=== PATIENT | male | born 1960 | race Caucasian/White ===

== ENCOUNTER 2016-12-14 20:45 | Emergency (ER) | payer MEDICARE, MEDICAID ==
[2016-12-14] MEDS ORDERED: 50% Dextrose in Water 50 ML Syringe IVPUSH ONE (21:00)
[2016-12-14] MEDS ORDERED: Labetalol 100 MG Tab PO ONE (21:13)
[2016-12-14 21:30] VITALS: BP 221/102
[2016-12-14 21:39] LABS: CHLORIDE,CL 100 mmol/L (101-111); SODIUM,NA 136 mmol/L (135-145)
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
== END 2016-12-14 22:40 | disposition home or self-care (01) ==
LOC: DL.ED 20:45
DX: E11.649 Type 2 diabetes mellitus with hypoglycemia without coma (principal); I10 Essential (primary) hypertension; Z79.899 Other long term (current) drug therapy; Z79.4 Long term (current) use of insulin
CPT/HCPCS: 36415; 80053; 82962; 84484; 85025; 85610; 99285; A9270; 96374; 99283; J7060

== ENCOUNTER 2017-08-13 21:05 | Emergency (ER) | payer MEDICARE, MEDICAID ==
--- NOTE | 2017-08-13 21:19 | EDM.PDOC ---
ED HPI GENERAL MEDICAL PROBLEM - General Stated Complaint: IN BY AMBULANCE Time Seen by Provider: 08/13/17 21:13 Source of Information: Reports: EMS History Limitations: Reports: Altered Mental Status - History of Present Illness INITIAL COMMENTS - FREE TEXT/NARRATIVE: EMS state his mother got concerned since he didn't answer her call, thought is DM reaction. BS 172 @ scene, pt not responding verbally only to sternal rub. on arrival pt pulled away when tried to exam pupils, no verbal response but fighting IV insertion. somewhat combative. no respiratory distress. last time some talked to him was yesterday. - Related Data Allergies Allergy/AdvReac Type Severity Reaction Status Date / Time No Known Allergies Allergy Verified 12/14/16 21:14 Home Meds: Home Meds Insulin Detemir [Levemir Flexpen] 16 pen SQ QAM 03/14/14 [History] Insulin Aspart [Novolog Flexpen] 6 units SQ TID 05/25/14 [History] Insulin Detemir [Levemir Flextouch] 8 units SQ QPM 12/14/16 [History] Labetalol HCl [Labetalol] 300 mg PO DAILY 12/14/16 [History] Levothyroxine 75 mcg PO ACBREAKFAST 12/14/16 [History] Social & Family History - Tobacco Use Smoking Status *Q: Never Smoker Second Hand Smoke Exposure: No - Alcohol Use Days Per Week of Alcohol Use: 1 Number of Drinks Per Day: 2 Total Drinks Per Week: 2 - Recreational Drug Use Recreational Drug Use: No ED ROS GENERAL - Review of Systems Review Of Systems: ROS reveals no pertinent complaints other than HPI. - Physical Exam Exam: See Below Exam Limited By: Altered Mental Status General Appearance: Other (dishevelled appearance) Eye Exam: Right Eye: Other (bilateral exudates,), Bilateral Eye: PERRL (pupils ess ER @ 3mm, pt jerks head away) Ears: Normal External Exam, Normal Canal Throat/Mouth: No Airway Compromise Head Exam: Atraumatic Neck: Normal Inspection, Full Range of Motion Respiratory/Chest: No Respiratory Distress, Rhonchi Cardiovascular: Regular Rate, Rhythm GI/Abdominal: Soft, Non-Tender. No: Distended Neuro Exam (Abbreviated): Other (no verbal response, only body movements) Skin Exam: Warm, Dry, Normal Color, Other (unkept) Course - Vital Signs Last Recorded V/S: Last Vital Signs Temp 36.5 C 08/13/17 21:05 Pulse 93 08/13/17 21:05 Resp 18 08/13/17 21:05 BP 150/84 H 08/13/17 21:05 Pulse Ox 98 08/13/17 21:05 - Orders/Labs/Meds Orders: Active Orders 24 hr Category Date Time Status EKG 12 Lead [EKG Documentation Completion] [RC] STAT Care 08/13/17 22:06 Active CULTURE BLOOD [BC] Stat Lab 08/13/17 21:10 Results Labs: Laboratory Tests 08/13/17 08/13/17 08/13/17 Range/Units 21:10 21:10 21:10 WBC 9.1 (5.0-10.0) 10^3/uL RBC 4.31 L (4.6-6.2) 10^6/uL Hgb 12.7 L D (14.0-18.0) g/dL Hct 42.2 (40.0-54.0) % MCV 97.9 D (80-100) fL MCH 29.5 (27.0-34.0) pg MCHC 30.1 L (33.0-35.0) g/dL Plt Count 281 (150-450) 10^3/uL Neut % (Auto) 76.8 H (42.2-75.2) % Lymph % (Auto) 12.7 L (20.5-50.1) % [place] % (Auto) 9.1 H (2-8) % Eos % (Auto) 0.7 L (1.0-3.0) % Baso % (Auto) 0.7 (0.0-1.0) % Sodium 141 (135-145) mmol/L Potassium 4.6 (3.6-5.0) mmol/L Chloride 97 L (101-111) mmol/L Carbon Dioxide 27.0 (21.0-31.0) mmol/L Anion Gap 21.6 BUN 29 H (7-18) mg/dL Creatinine 5.0 H D (0.6-1.3) mg/dL Est Cr Clr Drug Dosing 14.69 mL/min Estimated GFR (MDRD) 12 BUN/Creatinine Ratio 5.80 Glucose 210 H (74-105) mg/dL Lactic Acid 1.1 (0.5-2.2) mmol/L Calcium 8.8 (8.4-10.2) mg/dl Total Bilirubin 1.0 (0.2-1.0) mg/dL AST 22 (10-42) IU/L ALT 9 L (10-60) IU/L Alkaline Phosphatase 138 H (42-121) IU/L Ammonia (11-35) umol/L Creatine Kinase (26-174) IU/L Troponin I 0.26 H* (0.00-0.02) ng/ml Total Protein 7.8 (6.7-8.2) g/dl Albumin 3.0 L (3.2-5.5) g/dl Globulin 4.8 Albumin/Globulin Ratio 0.63 Urine Color (YELLOW) Urine Appearance (CLEAR) Urine pH (5.0-9.0) Ur Specific [place] (1.005-1.030) Urine Protein (NEGATIVE) Urine Glucose (UA) (NEGATIVE) Urine Ketones (NEGATIVE) Urine Occult Blood (NEGATIVE) Urine Nitrite (NEGATIVE) Urine Bilirubin (NEGATIVE) Urine Urobilinogen (0.2-1.0) mg/dL Ur Leukocyte Esterase (NEGATIVE) Urine RBC /HPF Urine WBC (0-5/HPF) /HPF Ur Epithelial Cells /HPF Urine Bacteria (0-FEW/HPF) /HPF Urine Opiates Screen (NEGATIVE) Ur Oxycodone Screen (NEGATIVE) Urine Methadone Screen (NEGATIVE) Ur Barbiturates Screen (NEGATIVE) U Tricyclic Antidepress (NEGATIVE) Ur Phencyclidine Scrn (NEGATIVE) Ur Amphetamine Screen (NEGATIVE) U Methamphetamines Scrn (NEGATIVE) Urine MDMA Screen (NEGATIVE) U Benzodiazepines Scrn (NEGATIVE) Urine Cocaine Screen (NEGATIVE) U Marijuana (THC) Screen (NEGATIVE) Ethyl Alcohol < 5 mg/dL 08/13/17 08/13/17 08/13/17 Range/Units 21:10 21:10 21:20 WBC (5.0-10.0) 10^3/uL RBC (4.6-6.2) 10^6/uL Hgb (14.0-18.0) g/dL Hct (40.0-54.0) % MCV (80-100) fL MCH (27.0-34.0) pg MCHC (33.0-35.0) g/dL Plt Count (150-450) 10^3/uL Neut % (Auto) (42.2-75.2) % Lymph % (Auto) (20.5-50.1) % [place] % (Auto) (2-8) % Eos % (Auto) (1.0-3.0) % Baso % (Auto) (0.0-1.0) % Sodium (135-145) mmol/L Potassium (3.6-5.0) mmol/L Chloride (101-111) mmol/L Carbon Dioxide (21.0-31.0) mmol/L Anion Gap BUN (7-18) mg/dL Creatinine (0.6-1.3) mg/dL Est Cr Clr Drug Dosing mL/min Estimated GFR (MDRD) BUN/Creatinine Ratio Glucose (74-105) mg/dL Lactic Acid (0.5-2.2) mmol/L Calcium (8.4-10.2) mg/dl Total Bilirubin (0.2-1.0) mg/dL AST (10-42) IU/L ALT (10-60) IU/L Alkaline Phosphatase (42-121) IU/L Ammonia 39 H (11-35) umol/L Creatine Kinase 140 (26-174) IU/L Troponin I (0.00-0.02) ng/ml Total Protein (6.7-8.2) g/dl Albumin (3.2-5.5) g/dl Globulin Albumin/Globulin Ratio Urine Color Dark yellow (YELLOW) Urine Appearance Slightly cloudy (CLEAR) Urine pH 8.5 (5.0-9.0) Ur Specific [place] 1.015 (1.005-1.030) Urine Protein >=300 H (NEGATIVE) Urine Glucose (UA) 250 H (NEGATIVE) Urine Ketones Negative (NEGATIVE) Urine Occult Blood Trace-intact H (NEGATIVE) Urine Nitrite Negative (NEGATIVE) Urine Bilirubin Negative (NEGATIVE) Urine Urobilinogen 0.2 (0.2-1.0) mg/dL Ur Leukocyte Esterase Negative (NEGATIVE) Urine RBC 0-5 /HPF Urine WBC 0-5 (0-5/HPF) /HPF Ur Epithelial Cells Few /HPF Urine Bacteria Rare (0-FEW/HPF) /HPF Urine Opiates Screen (NEGATIVE) Ur Oxycodone Screen (NEGATIVE) Urine Methadone Screen (NEGATIVE) Ur Barbiturates Screen (NEGATIVE) U Tricyclic Antidepress (NEGATIVE) Ur Phencyclidine Scrn (NEGATIVE) Ur Amphetamine Screen (NEGATIVE) U Methamphetamines Scrn (NEGATIVE) Urine MDMA Screen (NEGATIVE) U Benzodiazepines Scrn (NEGATIVE) Urine Cocaine Screen (NEGATIVE) U Marijuana (THC) Screen (NEGATIVE) Ethyl Alcohol mg/dL 08/13/17 Range/Units 21:20 WBC (5.0-10.0) 10^3/uL RBC (4.6-6.2) 10^6/uL Hgb (14.0-18.0) g/dL Hct (40.0-54.0) % MCV (80-100) fL MCH (27.0-34.0) pg MCHC (33.0-35.0) g/dL Plt Count (150-450) 10^3/uL Neut % (Auto) (42.2-75.2) % Lymph % (Auto) (20.5-50.1) % [place] % (Auto) (2-8) % Eos % (Auto) (1.0-3.0) % Baso % (Auto) (0.0-1.0) % Sodium (135-145) mmol/L Potassium (3.6-5.0) mmol/L Chloride (101-111) mmol/L Carbon Dioxide (21.0-31.0) mmol/L Anion Gap BUN (7-18) mg/dL Creatinine (0.6-1.3) mg/dL Est Cr Clr Drug Dosing mL/min Estimated GFR (MDRD) BUN/Creatinine Ratio Glucose (74-105) mg/dL Lactic Acid (0.5-2.2) mmol/L Calcium (8.4-10.2) mg/dl Total Bilirubin (0.2-1.0) mg/dL AST (10-42) IU/L ALT (10-60) IU/L Alkaline Phosphatase (42-121) IU/L Ammonia (11-35) umol/L Creatine Kinase (26-174) IU/L Troponin I (0.00-0.02) ng/ml Total Protein (6.7-8.2) g/dl Albumin (3.2-5.5) g/dl Globulin Albumin/Globulin Ratio Urine Color (YELLOW) Urine Appearance (CLEAR) Urine pH (5.0-9.0) Ur Specific [place] (1.005-1.030) Urine Protein (NEGATIVE) Urine Glucose (UA) (NEGATIVE) Urine Ketones (NEGATIVE) Urine Occult Blood (NEGATIVE) Urine Nitrite (NEGATIVE) Urine Bilirubin (NEGATIVE) Urine Urobilinogen (0.2-1.0) mg/dL Ur Leukocyte Esterase (NEGATIVE) Urine RBC /HPF Urine WBC (0-5/HPF) /HPF Ur Epithelial Cells /HPF Urine Bacteria (0-FEW/HPF) /HPF Urine Opiates Screen Negative (NEGATIVE) Ur Oxycodone Screen Negative (NEGATIVE) Urine Methadone Screen Negative (NEGATIVE) Ur Barbiturates Screen Negative (NEGATIVE) U Tricyclic Antidepress Negative (NEGATIVE) Ur Phencyclidine Scrn Negative (NEGATIVE) Ur Amphetamine Screen Negative (NEGATIVE) U Methamphetamines Scrn Negative (NEGATIVE) Urine MDMA Screen Negative (NEGATIVE) U Benzodiazepines Scrn Negative (NEGATIVE) Urine Cocaine Screen Negative (NEGATIVE) U Marijuana (THC) Screen Negative (NEGATIVE) Ethyl Alcohol mg/dL - Re-Assessments/Exams Free Text/Narrative Re-Assessment/Exam: 08/13/17 22:[address] Yanes @ [facility] who kindly accepted pt. Departure - Departure Time of Disposition: 22:35 Disposition: DC/Tfer to [facility] 02 Condition: Fair Clinical Impression: Unresponsive state - Discharge Information Forms: Interfacility Transfer EMTALA - My Orders Last 24 Hours: My Active Orders 08/13/17 21:10 CULTURE BLOOD [BC] Stat 08/13/17 22:06 EKG 12 Lead [EKG Documentation Completion] [RC] STAT - Assessment/Plan Last 24 Hours: My Active Orders 08/13/17 21:10 CULTURE BLOOD [BC] Stat 08/13/17 22:06 EKG 12 Lead [EKG Documentation Completion] [RC] STAT
[2017-08-13 21:38] LABS: CHLORIDE,CL 97 mmol/L (101-111); SODIUM,NA 141 mmol/L (135-145)
--- NOTE | 2017-08-17 10:05 | EKG ---
08/13/2017- [facility] - EKG, per my reading, shows sinus rhythm with short AK interval. [facility] /[id number]
== END 2017-08-13 23:00 ==
LOC: DL.ED 21:05
DX: R41.82 Altered mental status, unspecified (principal); Z79.84 Long term (current) use of oral hypoglycemic drugs; Z79.899 Other long term (current) drug therapy
CPT/HCPCS: 36415; 70450; 71010; 80053; 80305; 81001; 82140; 82550; 83605; 84484; 85025; 87040; 93005; 93010; 99285; G0480